=== PATIENT | female | born 1990 | race Caucasian/White ===

== ENCOUNTER → 2016-04-20 | Outpatient (CLI) | payer OTHER ==
[~2016-04-20] MED LIST: ACCUNEB 0.1.25 MG/1 INH; ALBUTEROL2.5 MG/0.5 INH; AMOXICILLIN500 M2 PO; AMOXICILLIN500 MG PO; ANTIBIOTIC O500 U/GM T; AUGMENTIN 500500 M1 PO; AUGMENTIN 875875 MG PO; CEPHALEXIN500 M1 PO; CIPRO250 MG PO; CLINDAMYCIN HC300 MG PO; CLINDAMYCIN150 MG PO; CYCLOBENZAPRINE10 MG PO; DIFLUCAN150 MG PO; DOXYCYCLINE HY100 M3 PO; FLAGYL250 MG PO; FLONASE ALLERG9.9 ML NAS; GOOD SENSE ALLE10 MG PO; HYCODAN/HYDROMET5 ML PO; HYDROCODONE BIT1 T11 PO; IBU800 MG PO; KENALOG0.1% TP; LIDOCAINE HCL100 M1 MM; MACROBID100 M1 PO; METFORMIN500 MG PO; METOPROLOL SUCC25 M2 PO; Motrin,Rufen800 MG PO; NAPROSYN500 MG PO; NORCO 5-325 TA1 EACH PO; ORTHO TRI-CYCL1 EACH PO; PREDNICOT20 MG PO; PREDNISONE10 MG PO; PRENATAL 1 PLUS1 TAB PO; PRENATAL1 TA3 PO; PROVENTIL 3 ML3 ML INH; QUALITY CHOICE10 M3 PO; TAMIFLU 75MG CA75 MG PO; TORADOL10 MG PO; TRAMADOL HCL50 MG PO; TRI-LINYAH TAB1 EACH PO; ULTRAM50 MG PO; VENTOLIN H0.09 MG/AC INH; VENTOLIN0.09 MG/AC INH; VISTARIL25 M1 PO; ZITHROMAX250 MG PO; ZOFRAN ODT4 MG SL; ZYRTEC10 MG PO; Zofran4 MG PO
[2016-04-20 12:56] LABS: HEMATOCRIT 41.1 % (37.0-47.0); HEMOGLOBIN 13.4 g/dl (12.0-16.0); MEAN CORPUSCULAR HGB CONC 32.6 g/dl (33.0-37.0); MEAN PLATELET VOLUME 11.4 fl (9.6-12.3); RED BLOOD COUNT 4.78 10*6/uL (4.10-5.10); RED CELL DISTRI WIDTH 13.5 % (0-14.5)
[2016-04-20 13:14] LABS: HEMOGLOBIN A1c 5.6 % (4.8-5.6)
[2016-04-20 13:24] LABS: ALBUMIN 3.5 gm/dl (3.1-4.5); ALKALINE PHOSPHATASE 82 U/L (45-117); BILIRUBIN, TOTAL 0.3 mg/dl (0.2-1.0); BUN 10 mg/dl (7-24); CARBON DIOXIDE 25 mmol/L (21-32); CHLORIDE 109 mmol/L (98-107); CHOLESTEROL 106 mg/dL (<200); EST GLOM FILT AFRICAN AMERICAN > 60 ml/min; GLUCOSE 100 mg/dL (65-99); HDL CHOLESTEROL 47 mg/dl (40-60); LDL CHOLESTEROL 46 mg/dL (9-159); POTASSIUM 4.1 mmol/L (3.5-5.1); SGOT/AST 13 IU/L (3-35); SGPT/ALT 21 U/L (12-78); SODIUM 143 mmol/L (136-145); TOTAL PROTEIN 7.9 gm/dL (6.4-8.2); TRIGLYCERIDES 67 mg/dl (<150); VLDL CHOLESTEROL 13 mg/dL (6-40)
[2016-04-22 17:06] LABS: TESTOSTERONE FREE, (DIRECT) 2.1 pg/mL (0.0-4.2)
== END | disposition home or self-care (01) ==
LOC: LAB 12:28
PROVIDERS: Family Medicine
DX: E55.9 Vitamin D deficiency, unspecified (principal); R53.83 Other fatigue; E66.9 Obesity, unspecified

== ENCOUNTER 2016-06-27 18:09 | Emergency (ER) | payer OTHER ==
[~2016-06-27] VITALS: Wt 114.3 kg
[2016-06-27] MEDS ORDERED: Motrin,Rufen800 MG PO (19:39)
== END 2016-06-27 19:42 | disposition home or self-care (01) ==
LOC: ED 18:09
DX: M79.672 Pain in left foot (principal); Z88.1 Allergy status to other antibiotic agents; Z88.6 Allergy status to analgesic agent; Z91.018 Allergy to other foods

== ENCOUNTER 2016-07-22 18:33 | Emergency (ER) | payer OTHER ==
[~2016-07-22] VITALS: Wt 116.1 kg
[2016-07-22] MEDS ORDERED: MEDROL DOSEPAK4 MG PO (21:11)
== END 2016-07-22 21:15 | disposition home or self-care (01) ==
LOC: ED 18:33
DX: T78.40XA Allergy, unspecified, initial encounter (principal); Z88.5 Allergy status to narcotic agent; Z88.8 Allergy status to other drugs, medicaments and biological substances; Z88.1 Allergy status to other antibiotic agents; Y92.9 Unspecified place or not applicable

== ENCOUNTER 2016-08-05 21:31 | Emergency (ER) | payer OTHER ==
[~2016-08-05] VITALS: Ht 165.1 cm; Wt 115.2 kg
[~2016-08-05 21:31] MED LIST changes: +MEDROL DOSEPAK4 MG PO
[2016-08-05] MEDS ORDERED: CLARITIN10 MG PO (21:53)
[2016-08-05] MEDS ORDERED: ANAPROX DS550 MG PO (22:08)
[2016-08-05] MEDS ORDERED: ROBAXIN500 M1 PO (22:08)
== END 2016-08-05 22:18 | disposition home or self-care (01) ==
LOC: ED 21:31
DX: S39.012A Strain of muscle, fascia and tendon of lower back, initial encounter (principal); Z90.49 Acquired absence of other specified parts of digestive tract; Z88.1 Allergy status to other antibiotic agents; Z88.6 Allergy status to analgesic agent; Z91.018 Allergy to other foods; X58.XXXA Exposure to other specified factors, initial encounter; Y93.89 Activity, other specified; Y92.9 Unspecified place or not applicable; Y99.9 Unspecified external cause status

== ENCOUNTER → 2016-08-23 | Outpatient (CLI) | payer OTHER ==
[~2016-08-23] MED LIST changes: +ANAPROX DS550 MG PO; +CLARITIN10 MG PO; +ROBAXIN500 M1 PO
[2016-08-23 11:27] LABS: HEMATOCRIT 38.2 % (37.0-47.0); HEMOGLOBIN 12.1 g/dl (12.0-16.0); MEAN CELL VOLUME 86.4 fl (81.0-99.0); MEAN CORPUSCULAR HGB 27.4 pg (27.0-31.0); MEAN CORPUSCULAR HGB CONC 31.7 g/dl (33.0-37.0); MEAN PLATELET VOLUME 11.1 fl (9.6-12.3); RED BLOOD COUNT 4.42 10*6/uL (4.10-5.10); RED CELL DISTRI WIDTH 13.4 % (0-14.5); WHITE BLOOD COUNT 5.8 10*3/uL (4.8-10.8)
[2016-08-23 11:48] LABS: ALBUMIN 3.3 gm/dl (3.1-4.5); ALKALINE PHOSPHATASE 73 U/L (45-117); BILIRUBIN, TOTAL 0.2 mg/dl (0.2-1.0); BUN 11 mg/dl (7-24); CARBON DIOXIDE 27 mmol/L (21-32); CHLORIDE 109 mmol/L (98-107); CHOLESTEROL 62 mg/dL (<200); EST GLOM FILT AFRICAN AMERICAN > 60 ml/min; GLUCOSE 90 mg/dL (65-99); HDL CHOLESTEROL 36 mg/dl (40-60); LDL CHOLESTEROL 17 mg/dL (9-159); POTASSIUM 4.2 mmol/L (3.5-5.1); SGOT/AST 24 IU/L (3-35); SGPT/ALT 53 U/L (12-78); SODIUM 141 mmol/L (136-145); TOTAL PROTEIN 6.9 gm/dL (6.4-8.2); TRIGLYCERIDES 43 mg/dl (<150); VLDL CHOLESTEROL 9 mg/dL (6-40)
== END | disposition home or self-care (01) ==
LOC: LAB 10:30
PROVIDERS: Family Medicine
DX: M54.5 Low back pain (principal); E78.00 Pure hypercholesterolemia, unspecified; N20.0 Calculus of kidney; E28.2 Polycystic ovarian syndrome; R63.5 Abnormal weight gain

== ENCOUNTER → 2016-09-03 | Outpatient (CLI) | payer OTHER | LOC: RAD 09:09 | DX: N20.0 Calculus of kidney (principal); Z90.49 Acquired absence of other specified parts of digestive tract ==

== ENCOUNTER 2016-10-05 23:01 | Emergency (ER) | payer OTHER ==
[~2016-10-05] VITALS: Ht 165.1 cm; Wt 117.9 kg
== END 2016-10-06 00:33 | disposition home or self-care (01) ==
LOC: ED 23:01
DX: S53.401A Unspecified sprain of right elbow, initial encounter (principal); Z88.8 Allergy status to other drugs, medicaments and biological substances; Z88.1 Allergy status to other antibiotic agents; Z88.6 Allergy status to analgesic agent; Z91.018 Allergy to other foods; W10.9XXA Fall (on) (from) unspecified stairs and steps, initial encounter; Y93.89 Activity, other specified; Y92.89 Other specified places as the place of occurrence of the external cause; Y99.8 Other external cause status

== ENCOUNTER 2017-01-01 17:04 | Emergency (ER) | payer OTHER ==
[~2017-01-01] VITALS: Ht 162.5 cm; Wt 117.9 kg
[2017-01-01] MEDS ORDERED: CLINDAMYCIN150 MG PO (17:20)
[2017-01-01] MEDS ORDERED: NAPROSYN500 MG PO (17:20)
== END 2017-01-01 19:06 | disposition home or self-care (01) ==
LOC: ED 17:04
DX: M25.512 Pain in left shoulder (principal); K08.89 Other specified disorders of teeth and supporting structures; R03.0 Elevated blood-pressure reading, without diagnosis of hypertension; Z88.6 Allergy status to analgesic agent; Z91.018 Allergy to other foods; Z90.49 Acquired absence of other specified parts of digestive tract

== ENCOUNTER 2017-02-12 23:08 | Emergency (ER) | payer OTHER ==
[~2017-02-12] VITALS: Ht 172.7 cm; Wt 90.7 kg
[2017-02-13] MEDS ORDERED: COMPAZINE5 M3 PO (01:10)
== END 2017-02-13 01:32 | disposition home or self-care (01) ==
LOC: ED 23:08
DX: R11.2 Nausea with vomiting, unspecified (principal); R05 Cough; R19.7 Diarrhea, unspecified; G43.909 Migraine, unspecified, not intractable, without status migrainosus; Z88.6 Allergy status to analgesic agent; Z91.018 Allergy to other foods; Z88.1 Allergy status to other antibiotic agents; Z90.49 Acquired absence of other specified parts of digestive tract

== ENCOUNTER 2017-03-17 09:44 | Emergency (ER) | payer OTHER ==
[~2017-03-17] VITALS: Ht 165.1 cm; Wt 117.9 kg
[~2017-03-17 09:44] MED LIST changes: +COMPAZINE5 M3 PO
[2017-03-17 10:56] LABS: BASO # 0.1 10*3/uL (0.0-0.1); BASO % 0.9 % (0.0-1.0); EOS # 0.2 10*3/uL (0.0-0.4); EOS % 4.1 % (1.0-4.0); HEMATOCRIT 39.1 % (37.0-47.0); HEMOGLOBIN 12.7 g/dl (12.0-16.0); LYMPH # 1.8 10*3/uL (1.3-4.4); LYMPH % 31.2 % (27.0-41.0); MEAN CELL VOLUME 86.5 fl (81.0-99.0); MEAN CORPUSCULAR HGB 28.1 pg (27.0-31.0); MEAN CORPUSCULAR HGB CONC 32.5 g/dl (33.0-37.0); MEAN PLATELET VOLUME 11.1 fl (9.6-12.3); MONO # 0.4 10*3/uL (0.1-1.0); NEUT # 3.2 10*3/uL (2.3-7.9); NEUT % 56.3 % (47.0-73.0); PLATELET COUNT AUTOMATED 218 10*3/uL (130-400); RED BLOOD COUNT 4.52 10*6/uL (4.10-5.10); RED CELL DISTRI WIDTH 13.4 % (0-14.5); WHITE BLOOD COUNT 5.6 10*3/uL (4.8-10.8)
[2017-03-17] MEDS ORDERED: ZITHROMAX250 MG PO (11:37)
[2017-03-18] MEDS ORDERED: ZOFRAN ODT4 MG SL (15:47)
== END 2017-03-17 12:13 | disposition home or self-care (01) ==
LOC: ED 09:44
PROVIDERS: Emergency Medicine
DX: J03.90 Acute tonsillitis, unspecified (principal); G43.909 Migraine, unspecified, not intractable, without status migrainosus; Z88.5 Allergy status to narcotic agent; Z88.1 Allergy status to other antibiotic agents; Z91.018 Allergy to other foods

== ENCOUNTER 2017-03-18 12:02 | Emergency (ER) | payer OTHER ==
[~2017-03-18] VITALS: Ht 167.6 cm; Wt 117.9 kg
[2017-03-18 12:33] LABS: HEMATOCRIT 43.6 % (37.0-47.0); HEMOGLOBIN 14.4 g/dl (12.0-16.0); MEAN CORPUSCULAR HGB 28.4 pg (27.0-31.0); MEAN PLATELET VOLUME 11.1 fl (9.6-12.3); PLATELET COUNT AUTOMATED 235 10*3/uL (130-400); RED BLOOD COUNT 5.07 10*6/uL (4.10-5.10); RED CELL DISTRI WIDTH 13.6 % (0-14.5)
[2017-03-18 12:47] LABS: ALBUMIN 3.6 gm/dl (3.1-4.5); ALKALINE PHOSPHATASE 97 U/L (45-117); BUN 14 mg/dl (7-24); CHLORIDE 107 mmol/L (98-107); CREATININE 0.71 mg/dL (0.55-1.02); LIPASE 278 U/L (73-393); SGOT/AST 28 IU/L (3-35); SGPT/ALT 65 U/L (12-78); SODIUM 142 mmol/L (136-145); TOTAL PROTEIN 7.8 gm/dL (6.4-8.2)
[2017-03-18 12:51] LABS: BILIRUBIN NEGATIVE (NEGATIVE); BLOOD NEGATIVE (NEGATIVE); CLARITY CLOUDY (CLEAR); COLOR YELLOW (YELLOW); GLUCOSE NEGATIVE (NEGATIVE); KETONE NEGATIVE (NEGATIVE); LEUKO ESTERASE TRACE (NEGATIVE); NITRITE NEGATIVE (NEGATIVE); UROBILINOGEN 0.2 E.U./dl (0.2-1.0)
[2017-03-18 12:52] LABS: PLATELET SUFFICIENCY NORMAL (NORMAL); TOTAL CELLS COUNTED 100 #CELLS
[2017-03-18 13:05] LABS: EPITHELIAL CELLS 20-25; RBC 0-2 rbc/hpf (0-2)
[2017-03-18] MEDS ORDERED: ZOFRAN ODT4 MG SL (15:47)
== END 2017-03-18 16:55 | disposition home or self-care (01) ==
LOC: ED 12:02
PROVIDERS: Student in an Organized Health Care Education/Training Program
DX: K76.0 Fatty (change of) liver, not elsewhere classified (principal); K52.9 Noninfective gastroenteritis and colitis, unspecified; E66.01 Morbid (severe) obesity due to excess calories; Z68.41 Body mass index [BMI] 40.0-44.9, adult; Z88.8 Allergy status to other drugs, medicaments and biological substances; Z88.5 Allergy status to narcotic agent; Z88.1 Allergy status to other antibiotic agents

== ENCOUNTER 2017-06-27 22:47 | Emergency (ER) | payer OTHER ==
[~2017-06-27] VITALS: Ht 165.1 cm; Wt 113.4 kg
[2017-06-27] MEDS ORDERED: NAPROSYN500 MG PO (23:54)
== END 2017-06-28 00:37 | disposition left against medical advice (07) ==
LOC: ED 22:47
DX: S30.0XXA Contusion of lower back and pelvis, initial encounter (principal); Z91.02 Food additives allergy status; Z88.1 Allergy status to other antibiotic agents; Z91.018 Allergy to other foods; Z88.6 Allergy status to analgesic agent; W10.9XXA Fall (on) (from) unspecified stairs and steps, initial encounter; Y93.89 Activity, other specified; Y92.89 Other specified places as the place of occurrence of the external cause; Y99.8 Other external cause status

== ENCOUNTER → 2017-10-13 | Outpatient (CLI) | payer OTHER ==
[2017-10-13 10:04] LABS: HEMATOCRIT 41.5 % (37.0-47.0); HEMOGLOBIN 13.2 g/dl (12.0-16.0); MEAN CELL VOLUME 90.2 fl (81.0-99.0); MEAN CORPUSCULAR HGB 28.7 pg (27.0-31.0); MEAN CORPUSCULAR HGB CONC 31.8 g/dl (33.0-37.0); MEAN PLATELET VOLUME 11.7 fl (9.6-12.3); RED BLOOD COUNT 4.6 10*6/uL (4.10-5.10); RED CELL DISTRI WIDTH 13.1 % (0-14.5); WHITE BLOOD COUNT 7.3 10*3/uL (4.8-10.8)
[2017-10-13 10:12] LABS: ALBUMIN 3.5 gm/dl (3.1-4.5); ALKALINE PHOSPHATASE 84 U/L (45-117); BUN 7 mg/dl (7-24); CHLORIDE 106 mmol/L (98-107); CHOLESTEROL 63 mg/dL (<200); CREATININE 0.68 mg/dL (0.55-1.02); HDL CHOLESTEROL 31 mg/dl (40-60); LDL CHOLESTEROL 25 mg/dL (9-159); POTASSIUM 4.3 mmol/L (3.5-5.1); SGOT/AST 19 IU/L (3-35); SGPT/ALT 52 U/L (12-78); SODIUM 139 mmol/L (136-145); TOTAL PROTEIN 7.4 gm/dL (6.4-8.2); TRIGLYCERIDES 36 mg/dl (<150); VLDL CHOLESTEROL 7 mg/dL (6-40)
== END ==
LOC: LAB 09:20
PROVIDERS: Family Medicine
DX: E74.9 Disorder of carbohydrate metabolism, unspecified (principal); E78.00 Pure hypercholesterolemia, unspecified; R23.3 Spontaneous ecchymoses; Z90.49 Acquired absence of other specified parts of digestive tract

== ENCOUNTER 2018-01-06 21:23 | Emergency (ER) | payer OTHER ==
[~2018-01-06] VITALS: Ht 167.6 cm; Wt 111.1 kg
[2018-01-06] MEDS ORDERED: AMOXICILLIN500 M2 PO (23:18)
== END 2018-01-07 00:06 | disposition home or self-care (01) ==
LOC: ED 21:23
DX: J03.90 Acute tonsillitis, unspecified (principal); G43.909 Migraine, unspecified, not intractable, without status migrainosus; E66.01 Morbid (severe) obesity due to excess calories; Z88.8 Allergy status to other drugs, medicaments and biological substances; Z88.5 Allergy status to narcotic agent; Z91.018 Allergy to other foods; Z88.1 Allergy status to other antibiotic agents; Z68.41 Body mass index [BMI] 40.0-44.9, adult

== ENCOUNTER 2018-01-31 19:41 | Emergency (ER) | payer OTHER ==
[~2018-01-31] VITALS: Ht 170.1 cm; Wt 113.4 kg
== END 2018-01-31 21:07 | disposition home or self-care (01) ==
LOC: ED 19:41
DX: S90.32XA Contusion of left foot, initial encounter (principal); M25.572 Pain in left ankle and joints of left foot; R09.89 Other specified symptoms and signs involving the circulatory and respiratory systems; Z88.1 Allergy status to other antibiotic agents; Z88.6 Allergy status to analgesic agent; Z91.018 Allergy to other foods; X50.1XXA Overexertion from prolonged static or awkward postures, initial encounter; Y93.89 Activity, other specified; Y92.89 Other specified places as the place of occurrence of the external cause; Y99.8 Other external cause status

== ENCOUNTER 2018-06-30 15:02 | Emergency (ER) | payer OTHER ==
[~2018-06-30] VITALS: Ht 167.6 cm; Wt 115.2 kg
[~2018-06-30 15:02] MED LIST changes: +OSTERA TABLET1 EACH PO; +PRAVACHOL20 MG PO; +TRI-SPRINTEC T1 EACH PO; +VENTOLIN,PR2 MG/5 ML PO; +[UNRECOGNIZED DRUG - OTHER] PO
[2018-06-30] MEDS ORDERED: CLINDAMYCIN HC300 MG PO (15:52)
[2018-06-30] MEDS ORDERED: ANAPROX DS550 MG PO (15:52)
[2018-07-30] MEDS ORDERED: BENADRYL ALLERG25 M5 PO (03:03)
[2018-07-30] MEDS ORDERED: FLONASE ALLERG9.9 ML NAS (03:03)
[2018-09-25] MEDS ORDERED: DICLEGIS DR 101 EACH PO (23:07)
== END 2018-06-30 16:20 | disposition home or self-care (01) ==
LOC: ED 15:02
DX: K08.89 Other specified disorders of teeth and supporting structures (principal); Z79.899 Other long term (current) drug therapy; Z88.1 Allergy status to other antibiotic agents; Z91.018 Allergy to other foods; Z88.6 Allergy status to analgesic agent

== ENCOUNTER 2018-10-01 01:25 | Emergency (ER) | payer OTHER ==
[~2018-10-01] VITALS: Ht 167.6 cm; Wt 114.3 kg
[~2018-10-01 01:25] MED LIST changes: +BENADRYL ALLERG25 M5 PO; +DICLEGIS DR 101 EACH PO
[2018-10-01 01:54] LABS: BILIRUBIN NEGATIVE (NEGATIVE); BLOOD NEGATIVE (NEGATIVE); CLARITY CLEAR (CLEAR); COLOR YELLOW (YELLOW); GLUCOSE NEGATIVE (NEGATIVE); KETONE NEGATIVE (NEGATIVE); LEUKO ESTERASE NEGATIVE (NEGATIVE); NITRITE NEGATIVE (NEGATIVE); SPECIFIC GRAVITY >= 1.030 (1.005-1.030); UROBILINOGEN 0.2 E.U./dl (0.2-1.0)
[2018-10-01 01:55] LABS: BASO # 0.1 10*3/uL (0.0-0.1); EOS # 0.3 10*3/uL (0.0-0.4); EOS % 3.2 % (1.0-4.0); HEMATOCRIT 39.3 % (37.0-47.0); HEMOGLOBIN 12.7 g/dl (12.0-16.0); LYMPH # 2.5 10*3/uL (1.3-4.4); LYMPH % 26.9 % (27.0-41.0); MEAN CELL VOLUME 90.6 fl (81.0-99.0); MEAN CORPUSCULAR HGB 29.3 pg (27.0-31.0); MEAN CORPUSCULAR HGB CONC 32.3 g/dl (33.0-37.0); MEAN PLATELET VOLUME 10.9 fl (9.6-12.3); MONO # 0.7 10*3/uL (0.1-1.0); MONO % 7.1 % (3.0-9.0); NEUT # 5.7 10*3/uL (2.3-7.9); NEUT % 61.6 % (47.0-73.0); PLATELET COUNT AUTOMATED 259 10*3/uL (130-400); RED BLOOD COUNT 4.34 10*6/uL (4.10-5.10); RED CELL DISTRI WIDTH 12.9 % (0-14.5); WHITE BLOOD COUNT 9.2 10*3/uL (4.8-10.8)
[2018-10-01 02:02] LABS: EPITHELIAL CELLS 0-5; RBC 0-2 rbc/hpf (0-2); WBC 0-2 wbc/hpf (0-5)
[2018-10-01 02:12] LABS: ALBUMIN 3.4 gm/dl (3.1-4.5); ALKALINE PHOSPHATASE 85 U/L (45-117); BUN 16 mg/dl (7-24); CHLORIDE 108 mmol/L (98-107); LIPASE 123 U/L (73-393); POTASSIUM 3.5 mmol/L (3.5-5.1); SGOT/AST 16 IU/L (3-35); SGPT/ALT 36 U/L (12-78); SODIUM 141 mmol/L (136-145); TOTAL PROTEIN 7.2 gm/dL (6.4-8.2)
== END 2018-10-01 04:50 | disposition left against medical advice (07) ==
LOC: ED 01:25
PROVIDERS: Student in an Organized Health Care Education/Training Program
DX: O26.891 Other specified pregnancy related conditions, first trimester (principal); R10.32 Left lower quadrant pain; G43.909 Migraine, unspecified, not intractable, without status migrainosus; E66.01 Morbid (severe) obesity due to excess calories; Z3A.01 Less than 8 weeks gestation of pregnancy; Z88.8 Allergy status to other drugs, medicaments and biological substances; Z88.1 Allergy status to other antibiotic agents; Z91.018 Allergy to other foods; Z79.2 Long term (current) use of antibiotics; Z79.899 Other long term (current) drug therapy; Z90.49 Acquired absence of other specified parts of digestive tract

== ENCOUNTER 2018-12-10 19:28 | Emergency (ER) | payer OTHER ==
[~2018-12-10] VITALS: Ht 167.6 cm; Wt 115.2 kg
[2018-12-10 20:02] LABS: BASO % 0.4 % (0.0-1.0); EOS # 0.2 10*3/uL (0.0-0.4); EOS % 2.7 % (1.0-4.0); HEMATOCRIT 36.5 % (37.0-47.0); HEMOGLOBIN 12.4 g/dl (12.0-16.0); LYMPH # 1.9 10*3/uL (1.3-4.4); LYMPH % 22.1 % (27.0-41.0); MEAN CELL VOLUME 87.7 fl (81.0-99.0); MEAN CORPUSCULAR HGB 29.8 pg (27.0-31.0); MEAN PLATELET VOLUME 10.9 fl (9.6-12.3); MONO # 0.5 10*3/uL (0.1-1.0); MONO % 6.3 % (3.0-9.0); NEUT # 5.7 10*3/uL (2.3-7.9); NEUT % 68.1 % (47.0-73.0); PLATELET COUNT AUTOMATED 226 10*3/uL (130-400); RED BLOOD COUNT 4.16 10*6/uL (4.10-5.10); RED CELL DISTRI WIDTH 13.2 % (0-14.5); WHITE BLOOD COUNT 8.4 10*3/uL (4.8-10.8)
[2018-12-10 20:18] LABS: ALBUMIN 2.7 gm/dl (3.1-4.5); ALKALINE PHOSPHATASE 64 U/L (45-117); BUN 5 mg/dl (7-24); CHLORIDE 106 mmol/L (98-107); CREATININE 0.51 mg/dL (0.55-1.02); LIPASE 168 U/L (73-393); POTASSIUM 3.3 mmol/L (3.5-5.1); SGOT/AST 13 IU/L (3-35); SGPT/ALT 19 U/L (12-78); SODIUM 139 mmol/L (136-145); TOTAL PROTEIN 6.5 gm/dL (6.4-8.2)
[2018-12-10 21:55] LABS: BILIRUBIN NEGATIVE (NEGATIVE); BLOOD NEGATIVE (NEGATIVE); CLARITY SL CLOUDY (CLEAR); COLOR YELLOW (YELLOW); GLUCOSE NEGATIVE (NEGATIVE); KETONE NEGATIVE (NEGATIVE); LEUKO ESTERASE TRACE (NEGATIVE); NITRITE NEGATIVE (NEGATIVE); SPECIFIC GRAVITY 1.015 (1.005-1.030); UROBILINOGEN 0.2 E.U./dl (0.2-1.0)
[2018-12-10 22:04] LABS: BACTERIA TRACE
== END 2018-12-10 23:47 | disposition home or self-care (01) ==
LOC: ED 19:28
PROVIDERS: Emergency Medicine Emergency Medical Services
DX: O26.892 Other specified pregnancy related conditions, second trimester (principal); R10.9 Unspecified abdominal pain; M54.5 Low back pain; R11.2 Nausea with vomiting, unspecified; O99.352 Diseases of the nervous system complicating pregnancy, second trimester; G43.909 Migraine, unspecified, not intractable, without status migrainosus; Z87.442 Personal history of urinary calculi; Z90.49 Acquired absence of other specified parts of digestive tract

== ENCOUNTER 2018-12-29 22:18 | Emergency (ER) | payer OTHER ==
[~2018-12-29] VITALS: Ht 170.1 cm; Wt 112.9 kg
[2018-12-29] MEDS ORDERED: METFORMIN HYDR500 MG PO (22:26)
[2018-12-29] MEDS ORDERED: AMOXICILLIN500 M2 PO (23:43)
== END 2018-12-30 00:20 | disposition home or self-care (01) ==
LOC: ED 22:18
DX: O99.512 Diseases of the respiratory system complicating pregnancy, second trimester (principal); J03.90 Acute tonsillitis, unspecified; O26.892 Other specified pregnancy related conditions, second trimester; R10.9 Unspecified abdominal pain; O99.352 Diseases of the nervous system complicating pregnancy, second trimester; G43.909 Migraine, unspecified, not intractable, without status migrainosus; Z3A.17 17 weeks gestation of pregnancy; Z88.8 Allergy status to other drugs, medicaments and biological substances; Z88.1 Allergy status to other antibiotic agents; Z91.018 Allergy to other foods; Z88.5 Allergy status to narcotic agent; Z79.899 Other long term (current) drug therapy; Z90.49 Acquired absence of other specified parts of digestive tract; Z87.442 Personal history of urinary calculi

== ENCOUNTER 2019-11-16 19:34 | Emergency (ER) | payer OTHER ==
[~2019-11-16] VITALS: Ht 167.6 cm; Wt 113.9 kg
[~2019-11-16 19:34] MED LIST changes: +METFORMIN HYDR500 MG PO
== END 2019-11-16 21:24 | disposition home or self-care (01) ==
LOC: ED 19:34
DX: S60.222A Contusion of left hand, initial encounter (principal); Z88.8 Allergy status to other drugs, medicaments and biological substances; Z79.899 Other long term (current) drug therapy; X58.XXXA Exposure to other specified factors, initial encounter; Y93.89 Activity, other specified; Y92.89 Other specified places as the place of occurrence of the external cause; Y99.8 Other external cause status

== ENCOUNTER 2020-07-25 20:53 | Emergency (ER) | payer OTHER ==
[~2020-07-25] VITALS: Wt 123.8 kg
== END 2020-07-25 22:30 | disposition home or self-care (01) ==
LOC: ED 20:53
DX: S93.401A Sprain of unspecified ligament of right ankle, initial encounter (principal); Z88.8 Allergy status to other drugs, medicaments and biological substances; Z88.5 Allergy status to narcotic agent; Z79.899 Other long term (current) drug therapy; Z79.84 Long term (current) use of oral hypoglycemic drugs; W06.XXXA Fall from bed, initial encounter; Y93.89 Activity, other specified; Y92.89 Other specified places as the place of occurrence of the external cause; Y99.8 Other external cause status

== ENCOUNTER 2020-09-04 13:10 | Emergency (ER) | payer OTHER ==
[~2020-09-04] VITALS: Ht 167.6 cm; Wt 123.8 kg
== END 2020-09-04 15:24 | disposition home or self-care (01) ==
LOC: ED 13:10
DX: S92.511A Displaced fracture of proximal phalanx of right lesser toe(s), initial encounter for closed fracture (principal); Z88.8 Allergy status to other drugs, medicaments and biological substances; Z88.5 Allergy status to narcotic agent; Z79.899 Other long term (current) drug therapy; W22.8XXA Striking against or struck by other objects, initial encounter; Y93.89 Activity, other specified; Y92.89 Other specified places as the place of occurrence of the external cause; Y99.8 Other external cause status

== ENCOUNTER 2020-11-15 18:35 | Emergency (ER) | payer OTHER ==
[~2020-11-15] VITALS: Ht 167.6 cm; Wt 126.1 kg
== END 2020-11-15 21:26 | disposition left against medical advice (07) ==
LOC: ED 18:35
DX: M79.671 Pain in right foot (principal); M25.571 Pain in right ankle and joints of right foot; Z88.8 Allergy status to other drugs, medicaments and biological substances; Z88.1 Allergy status to other antibiotic agents; Z88.6 Allergy status to analgesic agent; Z91.018 Allergy to other foods; Z79.899 Other long term (current) drug therapy; X50.1XXA Overexertion from prolonged static or awkward postures, initial encounter; Y93.89 Activity, other specified; Y92.89 Other specified places as the place of occurrence of the external cause; Y99.8 Other external cause status

== ENCOUNTER 2021-07-27 14:30 | Emergency (ER) | payer OTHER ==
[~2021-07-27] VITALS: Ht 165.1 cm; Wt 116.7 kg
[2021-07-27] MEDS ORDERED: PREDNISONE50 MG PO (16:49)
== END 2021-07-27 17:00 | disposition home or self-care (01) ==
LOC: ED 14:30
DX: T78.1XXA Other adverse food reactions, not elsewhere classified, initial encounter (principal); Z88.1 Allergy status to other antibiotic agents; Z91.018 Allergy to other foods; Z79.899 Other long term (current) drug therapy; Z90.49 Acquired absence of other specified parts of digestive tract; X58.XXXA Exposure to other specified factors, initial encounter

== ENCOUNTER 2022-05-03 19:22 | Emergency (ER) | payer OTHER ==
[~2022-05-03] VITALS: Ht 165.1 cm; Wt 120.2 kg
[~2022-05-03 19:22] MED LIST changes: +PREDNISONE50 MG PO
[2022-05-03] MEDS ORDERED: PROZAC20 MG PO (19:39)
[2022-05-03] MEDS ORDERED: WELLBUTRIN SR100 MG PO (19:39)
[2022-05-03] MEDS ORDERED: ZYRTEC10 M2 PO (19:40)
[2022-05-03] MEDS ORDERED: HYDROCODONE-AC1 EAC1 PO (21:04)
== END 2022-05-03 22:06 | disposition home or self-care (01) ==
LOC: ED 19:22
DX: S02.2XXA Fracture of nasal bones, initial encounter for closed fracture (principal); Z91.018 Allergy to other foods; Z88.5 Allergy status to narcotic agent; Z88.8 Allergy status to other drugs, medicaments and biological substances; Z98.890 Other specified postprocedural states; Y08.89XA Assault by other specified means, initial encounter; Y93.89 Activity, other specified; Y92.89 Other specified places as the place of occurrence of the external cause; Y99.8 Other external cause status

== ENCOUNTER 2022-07-27 20:34 | Emergency (ER) | payer OTHER ==
[~2022-07-27] VITALS: Ht 167.6 cm; Wt 104.3 kg
[~2022-07-27 20:34] MED LIST changes: +HYDROCODONE-AC1 EAC1 PO; +PROZAC20 MG PO; +WELLBUTRIN SR100 MG PO; +ZYRTEC10 M2 PO
[2022-07-27] MEDS ORDERED: SEPTDS PO (20:48)
== END 2022-07-27 20:58 | disposition home or self-care (01) ==
LOC: ED 20:34
DX: L03.311 Cellulitis of abdominal wall (principal); G43.909 Migraine, unspecified, not intractable, without status migrainosus; J45.909 Unspecified asthma, uncomplicated; Z88.8 Allergy status to other drugs, medicaments and biological substances; Z88.6 Allergy status to analgesic agent; Z91.018 Allergy to other foods; Z88.5 Allergy status to narcotic agent; Z98.890 Other specified postprocedural states

== ENCOUNTER 2022-08-23 09:37 | Emergency (ER) | payer OTHER ==
[~2022-08-23] VITALS: Ht 165.1 cm; Wt 132.0 kg
[~2022-08-23 09:37] MED LIST changes: +SEPTDS PO
[2022-08-23] MEDS ORDERED: VIBRAMYCIN100 MG PO (09:58)
== END 2022-08-23 10:07 | disposition home or self-care (01) ==
LOC: ED 09:37
DX: S80.861A Insect bite (nonvenomous), right lower leg, initial encounter (principal); G43.909 Migraine, unspecified, not intractable, without status migrainosus; J45.909 Unspecified asthma, uncomplicated; Z91.018 Allergy to other foods; Z88.5 Allergy status to narcotic agent; Z88.8 Allergy status to other drugs, medicaments and biological substances; Z98.890 Other specified postprocedural states; W57.XXXA Bitten or stung by nonvenomous insect and other nonvenomous arthropods, initial encounter; Y93.89 Activity, other specified; Y92.89 Other specified places as the place of occurrence of the external cause; Y99.8 Other external cause status

== ENCOUNTER 2022-11-01 20:05 | Emergency (ER) | payer OTHER ==
[~2022-11-01 20:05] MED LIST changes: +VIBRAMYCIN100 MG PO
== END 2022-11-01 21:19 | disposition home or self-care (01) ==
LOC: ED 20:05
DX: S93.402A Sprain of unspecified ligament of left ankle, initial encounter (principal); G43.909 Migraine, unspecified, not intractable, without status migrainosus; J45.909 Unspecified asthma, uncomplicated; Z88.5 Allergy status to narcotic agent; Z91.018 Allergy to other foods; Z98.890 Other specified postprocedural states; W10.8XXA Fall (on) (from) other stairs and steps, initial encounter; Y93.02 Activity, running; Y92.009 Unspecified place in unspecified non-institutional (private) residence as the place of occurrence of the external cause; Y99.8 Other external cause status

== ENCOUNTER 2022-12-15 19:39 | Emergency (ER) | payer OTHER | END 2022-12-16 00:32 | disposition left against medical advice (07) | LOC: ED 19:39 | DX: O26.892 Other specified pregnancy related conditions, second trimester (principal); M54.9 Dorsalgia, unspecified; Z88.5 Allergy status to narcotic agent; Z91.018 Allergy to other foods; Z88.6 Allergy status to analgesic agent; Z53.21 Procedure and treatment not carried out due to patient leaving prior to being seen by health care provider; Z3A.16 16 weeks gestation of pregnancy ==

== ENCOUNTER 2023-05-15 13:48 | Emergency (ER) | payer OTHER ==
[~2023-05-15] VITALS: Ht 165.1 cm; Wt 117.9 kg
[2023-05-15] MEDS ORDERED: Ketorolac Tromethamine 15 MG/ML VIAL IV ONE (14:00)
[2023-05-15] MEDS ORDERED: Metoclopramide Hydrochloride 10 MG/2 ML AMP IV ONE (14:00)
[2023-05-15] MEDS ORDERED: diphenhydrAMINE hydrochloride 50 MG/ML VIAL IV ONE (14:00)
[2023-05-15] MEDS ORDERED: IOHEXOL 300 MG/ML 100 ML VIAL IV ONE (14:10)
[2023-05-15 14:17] LABS: BASO % 0.4 % (0.0-1.0); EOS # 0.2 10*3/uL (0.0-0.4); EOS % 2.6 % (1.0-4.0); HEMATOCRIT 31.2 % (37.0-47.0); LYMPH # 1.6 10*3/uL (1.3-4.4); LYMPH % 22.3 % (27.0-41.0); MEAN CELL VOLUME 90.7 fl (81.0-99.0); MEAN CORPUSCULAR HGB 27.6 pg (27.0-31.0); MEAN CORPUSCULAR HGB CONC 30.4 g/dl (33.0-37.0); MEAN PLATELET VOLUME 10.3 fl (9.6-12.3); MONO # 0.5 10*3/uL (0.1-1.0); MONO % 7.6 % (3.0-9.0); NEUT # 4.6 10*3/uL (2.3-7.9); NEUT % 66.2 % (47.0-73.0); PLATELET COUNT AUTOMATED 283 10*3/uL (130-400); RED BLOOD COUNT 3.44 10*6/uL (4.10-5.10); RED CELL DISTRI WIDTH 13.7 % (0-14.5)
[2023-05-15 14:44] LABS: ALKALINE PHOSPHATASE 100 U/L (46-116); BUN 12 mg/dl (9-23); CHLORIDE 107 mmol/L (98-107); POTASSIUM 3.9 mmol/L (3.4-5.1); SGPT/ALT 8 U/L (5-49); TOTAL PROTEIN 5.9 gm/dL (6.0-8.0)
[2023-05-15 15:00] LABS: BILIRUBIN Negative (Negative); BLOOD 3+ (Negative); CLARITY Cloudy (Clear); COLOR Red (Yellow); GLUCOSE Negative (Negative); KETONE Negative (Negative); LEUKO ESTERASE 1+ (Negative); NITRITE Negative (Negative); PH 7.5 (4.5-8.0); UROBILINOGEN 0.2 E.U./dl (0.0-1.0)
[2023-05-15 15:17] LABS: BACTERIA 1+; RBC TNTC rbc/hpf (0-2)
[2023-05-15] MEDS ORDERED: LASIX20 MG PO (16:26)
[2023-05-15] MEDS ORDERED: CIPRO500 MG PO (16:26)
== END 2023-05-15 17:01 | disposition home or self-care (01) ==
LOC: ED 13:48
PROVIDERS: Emergency Medicine
DX: R10.9 Unspecified abdominal pain (principal); G43.909 Migraine, unspecified, not intractable, without status migrainosus; M79.89 Other specified soft tissue disorders; N39.0 Urinary tract infection, site not specified; R55 Syncope and collapse; J45.909 Unspecified asthma, uncomplicated; Z88.8 Allergy status to other drugs, medicaments and biological substances; Z91.018 Allergy to other foods; Z88.6 Allergy status to analgesic agent; Z88.5 Allergy status to narcotic agent; Z98.890 Other specified postprocedural states; Z79.899 Other long term (current) drug therapy

== ENCOUNTER 2023-09-20 22:31 | Emergency (ER) | payer OTHER ==
[~2023-09-20] VITALS: Ht 165.1 cm; Wt 117.9 kg
[~2023-09-20 22:31] MED LIST changes: +CIPRO500 MG PO; +LASIX20 MG PO
[2023-09-20] MEDS ORDERED: Cetirizine Hydrochloride 10 MG TAB PO ONE (22:40)
[2023-09-20] MEDS ORDERED: Ketorolac Tromethamine 30 MG/ML VIAL IM ONE (22:40)
[2023-09-20] MEDS ORDERED: Dexamethasone Sodium Phospha 20 MG/5 ML VIAL IM ONE (22:45)
[2023-09-20] MEDS ORDERED: PREDNISONE20 M1 PO (23:55)
[2023-09-20] MEDS ORDERED: CETIRIZINE HYDR10 MG PO (23:55)
== END 2023-09-21 00:19 | disposition home or self-care (01) ==
LOC: ED 22:31
DX: T63.481A Toxic effect of venom of other arthropod, accidental (unintentional), initial encounter (principal); G43.909 Migraine, unspecified, not intractable, without status migrainosus; J45.909 Unspecified asthma, uncomplicated; Z88.6 Allergy status to analgesic agent; Z91.018 Allergy to other foods; Z88.5 Allergy status to narcotic agent; Z88.8 Allergy status to other drugs, medicaments and biological substances; Z90.49 Acquired absence of other specified parts of digestive tract; Y92.89 Other specified places as the place of occurrence of the external cause

== ENCOUNTER 2024-11-12 07:40 | Emergency (ER) | payer OTHER ==
[~2024-11-12] VITALS: Ht 167.6 cm; Wt 129.7 kg
[~2024-11-12 07:40] MED LIST changes: +CETIRIZINE HYDR10 MG PO; +PREDNISONE20 M1 PO
[2024-11-12] MEDS ORDERED: Tdap Vaccine 0.5 ML SYR (Adult Vaccine) IM ONE (08:05)
== END 2024-11-12 08:49 | disposition home or self-care (01) ==
LOC: ED 07:40
DX: S51.812A Laceration without foreign body of left forearm, initial encounter (principal); G43.909 Migraine, unspecified, not intractable, without status migrainosus; J45.909 Unspecified asthma, uncomplicated; Z88.5 Allergy status to narcotic agent; Z88.8 Allergy status to other drugs, medicaments and biological substances; Z91.018 Allergy to other foods; W10.9XXA Fall (on) (from) unspecified stairs and steps, initial encounter; Y93.89 Activity, other specified; Y92.89 Other specified places as the place of occurrence of the external cause; Y99.8 Other external cause status

== ENCOUNTER → 2024-11-25 | Outpatient (CLI) | payer OTHER | LOC: WOUNDCARE 04:41 | PROVIDERS: ATTEND Nurse Practitioner Family | DX: S51.812A Laceration without foreign body of left forearm, initial encounter (principal); R60.9 Edema, unspecified; J45.909 Unspecified asthma, uncomplicated; Z90.49 Acquired absence of other specified parts of digestive tract; Z98.890 Other specified postprocedural states; Z79.84 Long term (current) use of oral hypoglycemic drugs; Z79.899 Other long term (current) drug therapy; X58.XXXA Exposure to other specified factors, initial encounter; Y93.89 Activity, other specified; Y92.89 Other specified places as the place of occurrence of the external cause; Y99.8 Other external cause status ==